=== PATIENT | male | born 1945 | race Caucasian/White ===

== ENCOUNTER 2017-04-18 11:28 | Emergency (ER) | payer MEDICARE, OTHER ==
[~2017-04-18] VITALS: Ht 193 cm; Wt 101.7 kg
[2017-04-18 13:53] VITALS: BP 147/81
== END 2017-04-18 14:36 | disposition home or self-care (01) ==
LOC: ED 13:30
DX: M79.662 Pain in left lower leg (principal); L03.116 Cellulitis of left lower limb; I10 Essential (primary) hypertension
CPT/HCPCS: 99284